=== PATIENT | female | born 1965 | race Caucasian/White ===

== ENCOUNTER → 2018-02-21 13:19 | Outpatient (POV) | payer BC, SELFPAY | DX: Z00.00 Encounter for general adult medical examination without abnormal findings (principal) ==

== ENCOUNTER → 2018-05-16 13:43 | Outpatient (POV) | payer BC, SELFPAY | PROVIDERS: PCP Nurse Practitioner Family | DX: Z00.00 Encounter for general adult medical examination without abnormal findings (principal) ==

== ENCOUNTER → 2018-05-23 13:23 | Outpatient (POV) | payer BC, SELFPAY | DX: Z00.00 Encounter for general adult medical examination without abnormal findings (principal) ==

== ENCOUNTER → 2018-06-20 13:30 | Outpatient (POV) | payer BC, SELFPAY | DX: Z00.00 Encounter for general adult medical examination without abnormal findings (principal) ==

== ENCOUNTER → 2020-04-08 14:44 | Outpatient (POV) | payer BC, SELFPAY | PROVIDERS: PCP Nurse Practitioner Family | DX: Z00.00 Encounter for general adult medical examination without abnormal findings (principal) ==

== ENCOUNTER 2020-07-26 01:57 | Inpatient (IN) | payer MEDICARE, SELFPAY ==
[2020-07-26] VITALS (29 sets, daily range): BP systolic 120–174; BP diastolic 52–78; PULSE 69–87; RESP 14–18; TEMP 36.5–36.8; O2SAT 84–100; BMI 18.6; BMI 23.6
--- NOTE | 2020-07-26 01:18 | XR_ITS ---
PROCEDURE: XR CHEST PORTABLE CLINICAL HISTORY: edema Generalized weakness COMPARISON: PA and lateral chest 11/29/2015 and 09/30/2012 FINDINGS: There is moderate generalized cardiomegaly. There are bilateral pleural effusions larger right side than left. Patchy ill-defined opacities are seen in the right perihilar region and right lower lobe and also in the left perihilar region. There are calcified right hilar nodes and subcarinal nodes. IMPRESSION: Cardiomegaly with findings most consistent with moderate chronic congestive heart failure, cannot exclude bilateral perihilar acute airspace disease such as pneumonia particularly left side Dictated by: Dr. Tc Grajeda MD 07/26/2020 07:38 Dr. Tc Grajeda MD in [place] 07/26/2020 07:38
[2020-07-26 01:21] LABS: VBG HCO3 18.7 mmol/L (23-30); VBG Oxygen Saturation 86.1 % (50-70); VBG PCO2 40.3 mmol/L (35-51); VBG PH 7.28 mmol/L (7.31-7.41); VBG PO2 48.1 mmol/L (28-40); VBG Total CO2 19.9 mmol/L (23-27)
--- NOTE | 2020-07-26 01:24 | PC.NURSE ---
calling [facility] for medical records.
[2020-07-26 01:32] LABS: Basophils % 0.4 % (0.1-2.0); Eosinophils # 0.3 K/mm3 (0.0-0.4); Eosinophils % 3.2 % (0.1-12.0); Lymphocytes # 1.3 K/mm3 (0.7-4.5); Lymphocytes % 13.7 % (10-50); Mean Corpuscular HGB Conc 28.5 g/dL (31.8-35.4); Mean Corpuscular Hemoglobin 27.7 pg (27.0-31.2); Mean Corpuscular Volume 97.4 fl (81-99); Mean Platelet Volume 8.4 fl (7.4-10.4); Monocytes # 0.7 K/mm3 (0.1-1.0); Monocytes % 6.6 % (1.7-9.3); Neutrophils # 7.4 K/mm3 (1.8-7.8); Neutrophils % 76.1 % (37.0-80.0); Red Cell Distribution Width 17.4 % (11.5-17.5); White Blood Count 9.8 K/mm3 (4.8-10.8)
--- NOTE | 2020-07-26 01:33 | PC.NURSE ---
[facility] 06/18/2020-07/08/2020
--- NOTE | 2020-07-26 01:34 | HMH.EDGENADL ---
ED Disposition Clinical Impression: Renal failure Disposition: Admitted As Inpatient Condition on Discharge: Serious - Critical Care Critical Care Time: Yes Attestation: On 07/26/20, the high probability of a clinically significant, sudden or life threatening deterioration of the following system(s) required my full and direct attention, intervention and personal management. The time I documented below is in addition to time spent performing reported procedures but includes the following listed in this critical care notation. Vital system(s) involved:: Circulatory Failure, Metabolic Failure, Renal Failure My critical care processes included: Assessment & monitoring of V/S, Initial and Re-exams, Data Review/Interpretation, Coordinating Care, Medication Orders and management, Documentation Medical Decision Making - Medical Records Medical records reviewed: Yes: I reviewed the patient's medical records. - Geraldo Inquiry Pt receiving controlled substance: No Vital Signs: 07/26/20 01:14 EST 07/26/20 01:59 EST 07/26/20 02:30 Temperature 98.0 F Temperature Source Oral Pulse Rate Pulse Rate [Right] 82 80 78 Respiratory Rate 18 16 17 Blood Pressure Blood Pressure [Right Arm] 139/62 120/56 L 129/56 L Blood Pressure Mean [Right Arm] 87 77 80 Blood Pressure Source [Right Arm] Automatic Cuff Automatic Cuff Automatic Cuff Blood Pressure Position [Right Arm] Supine Sitting Supine 02 Sat by Pulse Oximetry 84 L 97 98 Oxygen Delivery Method Room Air Room Air Nasal Cannula Oxygen Flow Rate (LPM) 3 07/26/20 02:53 07/26/20 03:00 07/26/20 03:13 Temperature 97.8 F 98.0 F Temperature Source Oral Oral Pulse Rate 76 Pulse Rate [Right] 80 75 Respiratory Rate 16 17 18 Blood Pressure 126/72 Blood Pressure [Right Arm] 141/58 H 122/56 L Blood Pressure Mean [Right Arm] 85 78 Blood Pressure Source [Right Arm] Automatic Cuff Automatic Cuff Blood Pressure Position [Right Arm] Supine Supine 02 Sat by Pulse Oximetry 95 96 Oxygen Delivery Method Nasal Cannula Nasal Cannula Nasal Cannula Oxygen Flow Rate (LPM) 3 3 2 - Lab Data Lab Results 07/26/20 01:15 EST: WBC 9.8, RBC 2.90 L, Hgb 8.0 L, Hct 28.3 L, MCV 97.4, MCH 27.7, MCHC 28.5 L, RDW 17.4, Plt Count 666 H, MPV 8.4, Neut % (Auto) 76.1, Lymph % (Auto) 13.7, [place] % (Auto) 6.6, Eos % (Auto) 3.2, Baso % (Auto) 0.4, Neut # (Auto) 7.4, Lymph # (Auto) 1.3, [place] # (Auto) 0.7, Eos # (Auto) 0.3, Baso # (Auto) 0.0 07/26/20 01:15 EST: Sodium 143, Potassium 4.5, Chloride 115 H, Carbon Dioxide 20 L, Anion Gap 12.5, BUN 66 H, Creatinine 5.00 H, Estimated Creat Clear 10, Estimated GFR 9 L*, Est GFR ( Amer) 11 L*, Glucose 109 H, Calcium 7.7 L, Phosphorus 7.6 H, Magnesium 1.6, Total Bilirubin 0.2, AST 17, ALT 9 L, Alkaline Phosphatase 130 H, Troponin I < 0.01, Total Protein 5.9 L, Albumin 2.6 L, Globulin 3.3 H, Albumin/Globulin Ratio 0.8 L 07/26/20 01:15 EST: Lactate 0.6 L 07/26/20 01:15 EST: SARS-CoV-2 IgG Ab (Rapid) Negative, SARS-CoV-2 IgM Ab (Rapid) Negative 07/26/20 01:15 EST: PT 11.9 H, INR 1.08 07/26/20 01:15 EST: NT-Pro-B Natriuret Pep 15747 H 07/26/20 01:17 EST: VBG pH 7.28 L, VBG pCO2 40.3, VBG pO2 48.1 H, VBG HCO3 18.7 L, VBG Total CO2 19.9 L, VBG O2 Saturation 86.1 H, VBG Base Excess -8.0 L 07/26/20 01:40 EST: Urine Color Yellow, Urine Appearance Cloudy, Urine pH 6.0, Ur Specific [place] 1.025, Urine Protein 2+, Urine Glucose (UA) Negative, Urine Ketones Negative, Urine Blood 1+, Urine Nitrate Negative, Urine Bilirubin Negative, Urine Urobilinogen 0.2, Ur Leukocyte Esterase 2+ A, Urine RBC 10-20, Urine WBC Tntc 07/26/20 02:05: Blood Type A Positive, Antibody Screen Negative Result diagrams: 07/26/20 01:15 EST 07/26/20 01:15 EST Orders (Tests/Meds): ED MEDICATIONS Generic Name Dose Route Start Last Admin Trade Name Freq PRN Reason Stop Dose Admin Acetaminophen 650 mg 07/26/20 02:54 Acetaminophen 325mg Tab PO 08/25/20 02:53 Q4HP PRN As Needed f
[2020-07-26 01:35] LABS: Hematocrit 28.3 % (37.0-47.0); Platelet Count 666 K/mm3 (142-424)
[2020-07-26 01:38] LABS: Alanine Aminotransferase 9 U/L (12-78); Albumin Level 2.6 g/dl (3.5-5.0); Albumin/Globulin Ratio 0.8 (1.1-1.8); Alkaline Phosphatase 130 U/L (38-126); Anion Gap 12.5 mEq/L (5-15); Aspartate Amino Transferase 17 U/L (14-36); Bilirubin,Total 0.2 mg/dl (0.2-1.3); Blood Urea Nitrogen 66 mg/dl (7-17); Calcium 7.7 mg/dl (8.4-10.2); Carbon Dioxide 20 mmol/L (22.0-30.0); Chloride 115 mmol/L (98-107); Creatinine Clearance Estimated 10 mL/min (50-200); Globulin 3.3 g/dL (1.3-3.2); Glucose 109 mg/dl (74-100); Lactic Acid 0.6 mmol/L (0.7-2.1); Magnesium 1.6 mg/dl (1.6-2.3); Phosphorous 7.6 mg/dl (2.5-4.5); Potassium 4.5 mmoL/L (3.5-5.1); Sodium 143 mmol/L (136-145); Total Protein,Serum 5.9 g/dl (6.3-8.2)
[2020-07-26 01:42] LABS: GFR (African American) 11 ML/MIN (>60)
[2020-07-26 01:43] LABS: Estimated Glomerular Filt Rate 9 ml/min (>60)
[2020-07-26 01:49] LABS: Appearance,Urine CLOUDY (Clear); Bilirubin,Urine Negative (Negative); Blood, Urine 1+ (Negative); Color,Urine YELLOW (Yellow); Glucose,Urine (UA) Negative (Negative); Ketones,Urine Negative (Negative); Leukocyte Esterase,Urine 2+ (Negative); Nitrate,Urine Negative (Negative); Protein,Urine 2+ (Negative); Specific Gravity, Urine 1.025 (1.005-1.030); Urobilinogen,Urine 0.2 EU/dl (0.2)
[2020-07-26 01:50] LABS: Troponin I < 0.01 ng/ml (0.00-0.034)
[2020-07-26 01:51] LABS: Microscopic, Urine URINE MICROSCOPIC (MICROSCOPIC); WBC,Urine TNTC #/hpf (0-3)
--- NOTE | 2020-07-26 01:56 | PC.NURSE ---
notified of critical lab results
[2020-07-26 02:13] LABS: Coronavirus 19 IgG Antibody Negative (Negative); Coronavirus 19 IgM Antibody Negative (Negative)
--- NOTE | 2020-07-26 02:37 | PC.NURSE ---
Physician speaking with Dr Renee for admission
--- NOTE | 2020-07-26 02:42 | PC.NURSE ---
Pt presented with stage 1 on coccyx.
--- NOTE | 2020-07-26 03:06 | ECG_ITS ---
APPROVED REPORT Exam: Resting ECG HR:80 bpm ECG Measurements Heart Rate 80 AXES NH 128 P 32 QRSd 70 QRS 81 QT 382 T 0 QTc 440 Conclusion Normal sinus rhythm Low voltage QRS Late r wave progression Abnormal ECG Electronically signed by : Maxwell Vargas, 07/26/2020 06:25:37
[2020-07-26 03:23] LABS: Prothrombin Time 11.9 seconds (9.4-11.8)
[2020-07-26 03:24] LABS: INR 1.08 (0.9-1.1)
--- NOTE | 2020-07-26 03:25 | PC.NURSE ---
patient up to floor via stretcher
[2020-07-26 03:58] LABS: NT Pro Brain Natriuretic Pep. 51500 pg/mL (0-125)
--- NOTE | 2020-07-26 04:12 | PC.NURSE ---
Stage 1 decubitus area 1.5cm x 0.25 cm pink with white scaly areas noted t/o
--- NOTE | 2020-07-26 04:49 | PC.NURSE ---
Pt is A&Ox4. Inspiratory and expiratory rhonchi heard scattered t/o per auscultation. Pt is tolerating 3L NC appropriately. Bowel sounds active in all 4 quads. Abdomen is soft and non-tender. Pt states I am in pain all over, but just want to sleep right now. Pt is currently resting in bed at this time with eyes closed. No other complaints or acute changes thus far this shift. Will continue to monitor.
[2020-07-26 06:47] LABS: Basophils # 0.1 K/mm3 (0-0.2); Basophils % 0.5 % (0.1-2.0); Eosinophils # 0.3 K/mm3 (0.0-0.4); Eosinophils % 2.7 % (0.1-12.0); Lymphocytes # 1.1 K/mm3 (0.7-4.5); Mean Corpuscular HGB Conc 29.7 g/dL (31.8-35.4); Mean Corpuscular Hemoglobin 28.6 pg (27.0-31.2); Mean Corpuscular Volume 96.4 fl (81-99); Mean Platelet Volume 8.4 fl (7.4-10.4); Monocytes # 0.7 K/mm3 (0.1-1.0); Monocytes % 7.4 % (1.7-9.3); Neutrophils # 7.6 K/mm3 (1.8-7.8); Neutrophils % 78.4 % (37.0-80.0); Platelet Count 592 K/mm3 (142-424); Red Blood Count 2.59 M/mm3 (4.20-5.40); Red Cell Distribution Width 17.5 % (11.5-17.5); White Blood Count 9.7 K/mm3 (4.8-10.8)
[2020-07-26 06:51] LABS: Hemoglobin 7.4 g/dL (12.2-16.2)
--- NOTE | 2020-07-26 06:54 | PC.NURSE ---
Addendum entered by Leanne Jones RN 07/26/20 07:02: Pagecandis Dukes for critical creatinine 4.8- start NS@ 50 ml/hr Original Note: Pagecandis Dukes for critical H&H Hgb-7.4 Hct 25 order type and cross match and (2) units
[2020-07-26 06:55] LABS: Anion Gap 11.5 mEq/L (5-15); Blood Urea Nitrogen 65 mg/dl (7-17); Carbon Dioxide 19 mmol/L (22.0-30.0); Chloride 117 mmol/L (98-107); Creatinine Clearance Estimated 13 mL/min (50-200); Estimated Glomerular Filt Rate 9 ml/min (>60); Potassium 4.5 mmoL/L (3.5-5.1); Sodium 143 mmol/L (136-145)
[2020-07-26 06:56] LABS: Alanine Aminotransferase 7 U/L (12-78); Albumin Level 2.3 g/dl (3.5-5.0); Albumin/Globulin Ratio 0.8 (1.1-1.8); Alkaline Phosphatase 114 U/L (38-126); Aspartate Amino Transferase 16 U/L (14-36); Bilirubin,Total 0.2 mg/dl (0.2-1.3); Calcium 7.5 mg/dl (8.4-10.2); Glucose 104 mg/dl (74-100); Phosphorous 7.6 mg/dl (2.5-4.5); Total Protein,Serum 5.3 g/dl (6.3-8.2)
[2020-07-26 06:57] LABS: GFR (African American) 11 ML/MIN (>60)
--- NOTE | 2020-07-26 07:57 | HMH.PHAVTE ---
[facility] Pharmacy VTE Monitoring - Patient Demographics Admission date: 07/26/20 Report Date: 07/26/20 Time: 07:57 Allergies/Adverse Reactions: Patient Allergies diphenhydramine [From BENADRYL] Allergy (Unknown, Verified 05/05/18 16:17) SWELLING Height: 1.65 m Weight: 64.41 kg Patient Problems: Current Active Problems Renal failure (Acute) - VTE Risk Labs: VTE Related Lab Results Hgb 7.4 g/dL (12.2-16.2) L* 07/26/20 06:10 Hct 25.0 % (37.0-47.0) L 07/26/20 06:10 Plt Count 592 K/mm3 (142-424) H 07/26/20 06:10 PT 11.9 seconds (9.4-11.8) H 07/26/20 01:15 EST INR 1.08 (0.9-1.1) 07/26/20 01:15 EST BUN 65 mg/dl (7-17) H 07/26/20 06:10 Creatinine 4.80 mg/dl (0.52-1.04) H 07/26/20 06:10 Estimated Creat Clear 13 mL/min (50-200) 07/26/20 06:10 VTE Score: 11 VTE Risk Level: Moderate Risk - Prophylaxis VTE Prophylaxis Ordered?: Yes Types of VTE Prophylaxis: TEDS Knee High Location of Applied Device: Bilateral Lower Extremeties
--- NOTE | 2020-07-26 08:09 | HMH.PHAINT ---
MEDICATION RECONCILIATION COMPLETED ON PATIENT USING EXTERNAL FILL HISTORY FROM PHARMACY. -ALLEN VILLALOBOS, BARBID
--- NOTE | 2020-07-26 12:59 | HMH.HP ---
*Admission Date: 07/26/20 *Chief complaint: Weakness *History of present illness: Patient is a 55-year-old white female, primary physician is nonstaff. We admitted her through the emergency room last night with complaints of generalized weakness which has been escalating. She had previously been to [facility], very similar complaints, left there AMA. She appears to be chronically ill and did not have a great very great summer. Patient was diagnosed with Covid in April. Long-term smoker. She is hypoxic, getting O2 per nasal cannula at 3 L. She was dependent on home oxygen, carries a diagnosis of COPD. She has a history of pneumonia. Patient is status post a transmetatarsal amputation of the right foot, a below the knee amputation on the left fairly recently. The BKA wound looks good, she still has some nylon sutures in place. These were being taken out in a stepwise fashion. She is bedbound for most of the day. Patient has a history of chronic renal failure. Her intake creatinine was 5.0. She is a very poor historian, but by her account has not seen a architecture drafter. Plans for hemodialysis transplant etc. have not been discussed with her. Etiology of her renal failure is not immediately clear. She denies a history of kidney stones. Patient has a very flat affect. Patient was found to have a UTI on admission, she is started on IV Rocephin. Blood culture and urine culture are pending. Previous echoes have suggested a diminished ejection fraction presence of curly B lines. Hemoglobin this morning is 7.4, she is in the process of receiving the first of 2 units PRBCs. Is that she has been transfused in the past. Patient has a very flat affect and is a very poor historian. [facility] History Medical History: Reports:: Diabetes Mellitus Type 1, Diabetes Mellitus Type 2, Hyperlipidemia, Hypertension, MRSA Denies:: Cancer *Have you ever received a pneumonia vaccine?: Yes *Have you received a flu vaccine this season?: No Other Medical History: Reports: Anemia, Blood Transfusion Reaction, Cataracts Other Surgeries: Yes: Angioplasty, Hysterectomy-Partial Amputation: Yes - *Social History Last grade of school completed: Some college Smoking Status: Current every day smoker Tobacco Type: cigarettes # Packs/Day (cigarettes): 1 Alcohol Intake: never *Occupational Status:: retired Housing: other *Travel in the last 8 weeks: None Family Hx:: Anemia, Cancer, Coronary Artery Disease, Diabetes, Heart Attack, Hyperlipidemia, Hypertension, Kidney Disease, Stroke, Alcoholism Review of Systems - Constitutional Reports anorexia, Reports lack of energy, Reports malaise - Eyes Denies change in vision, Denies discharge, Denies sensitivity to light - ENT Denies abnormal hearing, Denies ear pain - *Cardiovascular Reports shortness of breath with activity, Reports generalized swelling, Denies chest pain, Denies chest pain at rest, Denies irregular heart rhythm - *Respiratory Reports chest congestion, Reports wheezing, Denies change in phlegm color, Denies coughing up blood - *Gastrointestinal Denies abdominal pain, Denies loose stools, Denies difficulty swallowing, Denies vomiting blood, Denies black, tarry stools, Denies pain with swallowing - *Genitourinary Denies difficulty urinating, Denies blood in urine, Denies frequent nighttime urination - *Musculoskeletal Reports abnormal walking, Reports decreased muscle mass, Reports muscle weakness - Integumentary/Breasts Denies change in skin color, Denies new lesions - *Neurologic Reports abnormal walking, Denies confusion, Denies loss of vision, Denies memory loss, Denies seizure-like activity, Denies tremor(s) - Psychiatric Reports lack of enjoyment, Reports hopelessness - Endocrine Denies cold intolerance - Hematologic/Lymphatic Denies easy bleeding - Allergic/Immunologic Reports wheezing Meds Home Medications Medication Instructions Recorded Confirmed Type as
--- NOTE | 2020-07-26 16:47 | PC.NURSE ---
Pt has been pleasant and cooperative this shift. A&O X4. No complaints of pain or SOA. Pt has slept the majority of the shift and reports being exhausted . Pt received 2 units of PRBC's this shift. Lungs CTA. 2+ pitting edema noted to BLE. LT BKA covered with an ABD pad, Kerlix, and an ZENAIDA wrap. RT foot currently floating on a pillow due to a softened/reddened area on the heel. Toe amputation X 5 on the RT foot. Stage 1 decubitus ulcer noted to coccyx and covered with an Allevyn dressing. Pt requires assistance X1 with repositioning and has been encouraged to turn/reposition a minimum of Q2H this shift. F/C is patent and draining clear, yellow urine at bedside to gravity. No BM this shift. 20 G peripheral IV in the LT AC is patent and infusing NS @ 50 ML/HR. Pt is receiving O2 @ 3 LPM via NC with sats. >95%. VSS. Call light within reach. Will continue to monitor.
[2020-07-27 04:00] VITALS: BP 134/68; PULSE 87; RESP 18; TEMP 37.1; O2SAT 98
[2020-07-27 05:08] VITALS: BMI 24.1
--- NOTE | 2020-07-27 05:12 | PC.NURSE ---
Pt is A&Ox4. Pt has rested majority of this shift and has been very lethargic while awake and communicating with this nurse. Rt heel remains floated on pillow. Dressing on LLE BKA remains CDI. Lung sounds are clear t/o. Active bowel sounds in all 4 quads. [place] remains patent and is draining cloudy, dark yellow urine per gravity. No other complaints or acute changes at this time. Will continue to monitor.
[2020-07-27 05:56] LABS: POC Glucose,Bedside 114 (70-110)
[2020-07-27 06:39] LABS: MANUAL DIFFERENTIAL MANUAL DIFFERENTIAL (MANUAL DIFF)
[2020-07-27 06:41] LABS: Basophils # 0.1 K/mm3 (0-0.2); Basophils % 0.7 % (0.1-2.0); Eosinophils # 0.3 K/mm3 (0.0-0.4); Eosinophils % 3.6 % (0.1-12.0); Hematocrit 31.8 % (37.0-47.0); Hemoglobin 9.3 g/dL (12.2-16.2); Lymphocytes # 1.1 K/mm3 (0.7-4.5); Lymphocytes % 15.3 % (10-50); Mean Corpuscular HGB Conc 29.3 g/dL (31.8-35.4); Mean Corpuscular Hemoglobin 27.5 pg (27.0-31.2); Mean Platelet Volume 8.4 fl (7.4-10.4); Monocytes # 0.6 K/mm3 (0.1-1.0); Monocytes % 8.6 % (1.7-9.3); Neutrophils # 5.2 K/mm3 (1.8-7.8); Neutrophils % 71.9 % (37.0-80.0); Platelet Count 510 K/mm3 (142-424); Red Blood Count 3.38 M/mm3 (4.20-5.40); Red Cell Distribution Width 17.9 % (11.5-17.5); White Blood Count 7.2 K/mm3 (4.8-10.8)
[2020-07-27 07:00] LABS: Chloride 117 mmol/L (98-107); Potassium 4.5 mmoL/L (3.5-5.1); Sodium 144 mmol/L (136-145)
[2020-07-27 07:02] LABS: Alanine Aminotransferase 6 U/L (12-78); Aspartate Amino Transferase 16 U/L (14-36); Blood Urea Nitrogen 64 mg/dl (7-17); Creatinine Clearance Estimated 15 mL/min (50-200); Estimated Glomerular Filt Rate 10 ml/min (>60); GFR (African American) 13 ML/MIN (>60)
[2020-07-27 07:03] LABS: Albumin Level 2.2 g/dl (3.5-5.0); Albumin/Globulin Ratio 0.7 (1.1-1.8); Alkaline Phosphatase 89 U/L (38-126); Anion Gap 11.5 mEq/L (5-15); Bilirubin,Total 0.2 mg/dl (0.2-1.3); Calcium 7.4 mg/dl (8.4-10.2); Carbon Dioxide 20 mmol/L (22.0-30.0); Globulin 3.1 g/dL (1.3-3.2); Glucose 102 mg/dl (74-100); Total Protein,Serum 5.3 g/dl (6.3-8.2)
[2020-07-27 07:40] VITALS: BP 166/77; PULSE 94; RESP 20; TEMP 36.8; O2SAT 98
[2020-07-27 09:02] LABS: Anisocytosis 1+; Lymphocytes % 12 % (10-50); Monocytes % 2 % (2-9); Neutrophils % 86 % (42-76); Platelet Estimate Marked Increase; Total Cells Counted 100
[2020-07-27 09:03] LABS: Hypochromasia 1+
--- NOTE | 2020-07-27 09:36 | PC.NURSE ---
Did make Dr. Dukes and Meche in care management aware of notification of creatinine of 4.4 - which is lower than prior level this am.
[2020-07-27 11:27] LABS: POC Glucose,Bedside 226 (70-110)
--- NOTE | 2020-07-27 12:45 | HMH.ACPN2 ---
Internal Medicine - PN: Subj *Date: 07/27/20 *Time: 19:21 Interval history: uneventful night transfused denies chest pain/dyspnea Exam Vital signs and Labs for Last 24 Hours: Temp Pulse Resp BP Pulse Ox 98.2 F 94 H 20 166/77 H 98 07/27/20 07:40 07/27/20 07:40 07/27/20 07:40 07/27/20 07:40 07/27/20 07:40 Laboratory Results - last 24 hr 07/26/20 02:05: Crossmatch (AHG) See Detail 07/26/20 15:00: Hgb 10.0 L D, Hct 33.0 L 07/27/20 05:47: POC Glucose 114 H 07/27/20 06:28: WBC 7.2 D, RBC 3.38 L D, Hgb 9.3 L, Hct 31.8 L, MCV 94.0, MCH 27.5, MCHC 29.3 L, RDW 17.9 H, Plt Count 510 H, MPV 8.4, Neut % (Auto) 71.9, Lymph % (Auto) 15.3, [place] % (Auto) 8.6, Eos % (Auto) 3.6, Baso % (Auto) 0.7, Neut # (Auto) 5.2, Lymph # (Auto) 1.1, [place] # (Auto) 0.6, Eos # (Auto) 0.3, Baso # (Auto) 0.1, Total Counted 100, Neutrophils % (Manual) 86 H, Lymphocytes % (Manual) 12, Monocytes % (Manual) 2, Platelet Estimate Marked increase, Hypochromasia 1+, Anisocytosis 1+ 07/27/20 06:28: Sodium 144, Potassium 4.5, Chloride 117 H, Carbon Dioxide 20 L, Anion Gap 11.5, BUN 64 H, Creatinine 4.40 H, Estimated Creat Clear 15, Estimated GFR 10 L*, Est GFR ( Amer) 13 L*, Glucose 102 H, Calcium 7.4 L, Total Bilirubin 0.2, AST 16, ALT 6 L, Alkaline Phosphatase 89, Total Protein 5.3 L, Albumin 2.2 L, Globulin 3.1, Albumin/Globulin Ratio 0.7 L 07/27/20 11:16: POC Glucose 226 H I & O for Last 24 hours: Intake & Output 07/25/20 07/26/20 07/26/20 07/27/20 00:59 00:59 23:59 23:59 Intake Total 980 / 980 Output Total 200 / 200 Balance 780 / 780 Weight 145 lb Microbiology Reports for the Last 24 Hours: Microbiology 07/26/20 01:40 EST Urine,Catheterized Urine Culture - Preliminary - Constitutional chronically ill appearing, disheveled - *Routine HEENT Exam Head: Present: normocephalic. Absent: facial swelling Eye: Absent: conjunctival icterus ENT: Present: mucous membranes moist - *Routine Neck Exam Present: supple. Absent: JVD - *Routine Respiratory Exam Present: CTA bilaterally - *Routine Cardiovascular Exam Present: RRR - *Routine Abdominal Exam Present: soft, normoactive bowel sounds. Absent: tenderness - *Routine Extremities Exam Present: amputation. Absent: cyanosis, calf tenderness - *Routine Skin Exam Present: warm. Absent: rash - *Routine Neurological Exam Present: alert, oriented X3, vision grossly intact, hearing grossly intact - Routine Psychiatric Exam Present: depressed Assessment and Plan (1) Diabetes Status: Acute Category: Medical Code(s): E11.9 - Type 2 diabetes mellitus without complications (2) Coronary artery disease Status: Acute Category: Medical Code(s): I25.10 - Atherosclerotic heart disease of [place] coronary artery without angina pectoris (3) Chronic renal failure Status: Acute Category: Medical Code(s): N18.9 - Chronic kidney disease, unspecified (4) Anemia Status: Acute Category: Medical Code(s): D64.9 - Anemia, unspecified (5) Status post below-knee amputation of left lower extremity Status: Acute Category: Surgical Code(s): Z89.512 - Acquired absence of left leg below knee (6) History of transmetatarsal amputation of right foot Status: Acute Category: Surgical Code(s): Z89.431 - Acquired absence of right foot (7) COPD (chronic obstructive pulmonary disease) Status: Acute Category: Medical Code(s): J44.9 - Chronic obstructive pulmonary disease, unspecified (8) Hypoxia Status: Acute Category: Medical Code(s): R09.02 - Hypoxemia (9) Chronic respiratory failure with hypoxia, on home O2 therapy Status: Acute Category: Medical Code(s): J96.11 - Chronic respiratory failure with hypoxia; Z99.81 - Dependence on supplemental oxygen (10) History of pneumonia Status: Acute Category: Medical Code(s): Z87.01 - Personal history of pneumonia (recurrent) (11) History of 2019 novel coronavirus
[2020-07-27 13:32] VITALS: BMI 24.1
--- NOTE | 2020-07-27 13:35 | US_ITS ---
PROCEDURE: US KIDNEY CLINICAL INDICATION: crf Chronic renal failure COMPARISON: No exams were available for comparison FINDINGS: The right kidney is [id number]. No hydronephrosis, cortical thinning, or renal mass or perinephric fluid collection is evident. The left kidney is [id number]. No hydronephrosis, cortical thinning, or renal mass or perinephric fluid collection is evident. There are bilateral pleural effusions. There is a minimal amount of [place] renal fluid on the right. IMPRESSION: Unremarkable bilateral renal ultrasound. Bilateral pleural effusions with a small amount of fluid in the right perirenal space Dictated by: Rafy Garcia MD 07/27/2020 10:53 Rafy Garcia MD in [place] 07/27/2020 10:53
--- NOTE | 2020-07-27 13:35 | CA_ITS ---
APPROVED REPORT EXAM: Comprehensive 2D, Doppler, and color-flow Echocardiogram Recovery Assistant: Sugar Subramanian CRT Ht: 5 ft 4 in Wt: 142lbs BSA: 1.69 BP: 161/69 mmHg Indications: SOA,COPD,HTN,DM,CAD 2D Dimensions LVOT 1.59 cm (M/F) 1.5-2.5 M-Mode Dimensions RVDd 2.15 cm (0.9-2.6) LA Diam 3.50 cm (1.9-4.0) LVDd 5.62 cm (3.5-5.7) Ao Diam 3.16 cm (2.0-3.7) LVDs 4.14 cm (3.5-5.7) IVSd 1.14 cm (0.6-1.1) PWd 1.28 cm (0.6-1.1) EF (Teich) 51.00% FS 26.30% EDV (Teich) 154.90 mL ESV (Teich) 75.90 mL LV Diastology E Decel Time 90.00 (160-240 msec) E/A Ratio 0.7 MED E' 5.40 (< 7 cm/sec) E'/MED E' Ratio 11.50 (>14) LAT E' 7.30 (<10 cm/sec) E/LAT E' Ratio 8.51 (>14) Mitral Valve MV E Max Manjit. 62.00 (40-130 cm/s) MV A Velocity 83.00 (40-130 cm/s) E/A Ratio 0.75 MV Decel. Time 90.00 (160-240 ms) MV PHT 26.00 ms Left Ventricle Left atrium is mildly enlarged, left ventricle is normal size, mild concentric left ventricular hypertrophy, visually estimated ejection fraction 50%, there appears to be mild hypokinesis involving the inferior basal wall. Grade 1 diastolic dysfunction seen without tissue Doppler evidence of raise left atrial pressure. Right Ventricle Right atrium and right ventricular normal size and contractility. Aortic Valve Aortic valve is thickened and calcified leaflet chordae display good mobility, there is no aortic stenosis or aortic insufficiency. Mitral Valve Mitral valve is grossly normal, there is mild mitral regurgitation. Tricuspid Valve Tricuspid valve is grossly normal, there is mild tricuspid regurgitation, tricuspid regurgitation jet velocity is inadequate for calculation of the right ventricular systolic pressure. Pulmonic Valve Pulmonic valve is poorly visualized. Great Vessels Aortic root is normal size. Pericardium There is moderate-sized circumferential pericardial effusion noted without Doppler evidence of raised intrapericardial pressure. There is left-sided pleural effusion noted, there is organized echodense mass seen in the pleural effusion. Conclusion 1. Mildly enlarged left atrium, normal left ventricular size, mild concentric left ventricular hypertrophy, visually estimated ejection fraction of 50% with segmental wall motion abnormality described above, grade 1 diastolic dysfunction seen without tissue Doppler evidence of raise left atrial pressure. 2. Thickened and calcified aortic valve without Doppler evidence of aortic stenosis or aortic insufficiency. 3. Mild mitral and tricuspid regurgitation. 4. Moderate-sized circumferential pericardial effusion and left-sided pleural effusion seen as described above. 5. There is no Doppler evidence of raised intrapericardial pressure or tamponade physiology. Electronically signed by : Vinicio Moctezuma, 07/28/2020 04:55:51
[2020-07-27 15:22] VITALS: O2SAT 91; O2SAT 94
--- NOTE | 2020-07-27 15:42 | HMH.CNCARD ---
History of Present Illness Consult date: 07/27/20 Requesting physician: Joshua Dukes Consult reason: congestive heart failure Chief complaint: weakness Additional Medical History:: 1. History of congestive heart failure A. Echocardiogram 06/2020, ejection fraction 35% with evidence of concentric LVH, mild to moderate MR, trace AR B. Echocardiogram, 07/27/2020, preliminary shows improved ejection fraction of greater than 50% with mild MR and TR with moderate pericardial effusion. 2. Diabetes mellitus, treated for many years 3. Peripheral vascular disease A. Partial right foot amputation, 2018 B. Below the knee amputation, left leg, 06/2020 4. Acute on chronic kidney disease A. Creatinine 1.4 with GFR of 39 on 06/19/2020 B. Creatinine 5.0 with GFR of 9 on 07/26/2020 C. Hypoalbuminemia/hypo proteinemia 5. Chronic anemia A. Transfusion of 2 units PRBCs, 07/2020 6. History of COVID-19 infection 7. Chronic hypoxic respiratory failure with home O2 A. Tobacco use 8. Thrombocytosis with platelet count greater than 600,000, 07/2020 History of present illness: Patient is a 55-year-old white female, primary physician is nonstaff. We admitted her through the emergency room last night with complaints of generalized weakness which has been escalating. She had previously been to [facility], very similar complaints, left there AMA. She appears to be chronically ill and did not have a great very great summer. Patient was diagnosed with Covid in April. Long-term smoker. She is hypoxic, getting O2 per nasal cannula at 3 L. She was dependent on home oxygen, carries a diagnosis of COPD. She has a history of pneumonia. Patient is status post a transmetatarsal amputation of the right foot, a below the knee amputation on the left fairly recently. The BKA wound looks good, she still has some nylon sutures in place. These were being taken out in a stepwise fashion. She is bedbound for most of the day. Patient has a history of chronic renal failure. Her intake creatinine was 5.0. She is a very poor historian, but by her account has not seen a commercial maintenance technician. Plans for hemodialysis transplant etc. have not been discussed with her. Etiology of her renal failure is not immediately clear. She denies a history of kidney stones. Patient has a very flat affect. Patient was found to have a UTI on admission, she is started on IV Rocephin. Blood culture and urine culture are pending. Previous echoes have suggested a diminished ejection fraction presence of curly B lines. Hemoglobin this morning is 7.4, she is in the process of receiving the first of 2 units PRBCs. Is that she has been transfused in the past. Patient has a very flat affect and is a very poor historian. The above per Dr. Weinberg on admission. Patient relates prolonged stay at [facility] in May of this year with cellulitis/gangrene resulting in left below the knee amputation. After that hospitalization patient did have a short stay at [facility] but left AMA. She is not a great historian and does not remember parts of the stays to be the hospital. Per records she did have hemodialysis catheter placed at 1 point but removed it herself prior to leaving the hospital in [place]. She came to [facility] for admission due to weakness and confusion. She denies any chest pain, pressure or tightness at this time. [facility] History Medical History: Reports:: Diabetes Mellitus Type 1, Diabetes Mellitus Type 2, Hyperlipidemia, Hypertension, MRSA Denies:: Cancer *Have you ever received a pneumonia vaccine?: Yes *Have you received a flu vaccine this season?: No Other Medical History: Reports: Anemia, Blood Transfusion Reaction, Cataracts Other Surgeries: Yes: Angioplasty, Hysterectomy-Partial Amputation: Yes - *Social History Last grade of school completed: Some college Smoking Status: Current every day smoker Tobacco Type: cigarettes # Pac
[2020-07-27 16:00] VITALS: BP 155/72; PULSE 89; RESP 16; TEMP 36.7; O2SAT 90
[2020-07-27 16:30] LABS: POC Glucose,Bedside 214 (70-110)
--- NOTE | 2020-07-27 16:55 | PC.NURSE ---
This nurse did call at 1443 to request ssi regimen for pt. LM. Pts blood sugars have been 221 and 214 this shift. Pt has been asymptomatic. Awaiting ans at this time.
--- NOTE | 2020-07-27 18:23 | PC.NURSE ---
Pt alert and oriented x4 and able to make needs known. RR even and unlabored. Remains on 3 L NC. CB in reach. VSS. Have given meds per mar. Audible wheezes noted. S1,S2. No complaints this shift. Indwelling cath remains in place. BS x 4. Remains safe. Mx continues.
--- NOTE | 2020-07-27 19:21 | PC.NURSE ---
report given to clyde
[2020-07-27 20:00] VITALS: BP 151/74; PULSE 102; RESP 16; TEMP 36.8; O2SAT 91
[2020-07-27 22:01] LABS: POC Glucose,Bedside 165 (70-110)
--- NOTE | 2020-07-28 03:04 | PC.NURSE ---
Pt is alert and oriented x4. Pt noted restless majority of the shift thus far. No acute changes noted from previous shift. Pt c/o generalized pain. Administered Tylenol and Ambia x1 per NOV. Pt states adequate pain relief upon reassessment. PERRLA. Bilateral hand crime lab analyst noted equal and strong. Cap refill < 3 seconds. Right lobe noted with wheezing t/o upon auscultation. Left lobe noted with clear breath sounds. RR noted even and unlabored. Tolerated 3 lnc well. Pt will take o2 off at times, but states she does this at home and knows when to put the NC back on before becoming SOA. Pt denies SOA with RA. Abdomen noted soft and non-tender upon palpation. Denies N/V/D. +2 pitting edema noted to left stump. +3 pitting edema noted to right leg and foot. Pt refused to elevate BLE on pillows while lying in bed for this RN when offered. Refused TEDS. Dsg changed to buttocks region this shift. VSS. Remains safe. Call light within reach. Will continue to monitor.
[2020-07-28 04:00] VITALS: BP 163/74; PULSE 88; RESP 16; TEMP 36.6; O2SAT 95
[2020-07-28 05:25] LABS: POC Glucose,Bedside 119 (70-110)
[2020-07-28 05:33] VITALS: BMI 24.3
[2020-07-28 05:53] VITALS: O2SAT 95
[2020-07-28 07:05] LABS: Basophils # 0.1 K/mm3 (0-0.2); Basophils % 0.6 % (0.1-2.0); Eosinophils # 0.4 K/mm3 (0.0-0.4); Eosinophils % 4.5 % (0.1-12.0); Hematocrit 33.4 % (37.0-47.0); Lymphocytes # 1.3 K/mm3 (0.7-4.5); Lymphocytes % 14.9 % (10-50); Mean Corpuscular HGB Conc 29.8 g/dL (31.8-35.4); Mean Corpuscular Hemoglobin 27.9 pg (27.0-31.2); Mean Corpuscular Volume 93.5 fl (81-99); Mean Platelet Volume 7.7 fl (7.4-10.4); Monocytes # 0.6 K/mm3 (0.1-1.0); Monocytes % 7.2 % (1.7-9.3); Neutrophils # 6.3 K/mm3 (1.8-7.8); Neutrophils % 72.8 % (37.0-80.0); Platelet Count 476 K/mm3 (142-424); Red Blood Count 3.58 M/mm3 (4.20-5.40); Red Cell Distribution Width 17.7 % (11.5-17.5); White Blood Count 8.6 K/mm3 (4.8-10.8)
[2020-07-28 07:09] LABS: Chloride 114 mmol/L (98-107); Potassium 4.4 mmoL/L (3.5-5.1); Sodium 143 mmol/L (136-145)
[2020-07-28 07:11] LABS: Blood Urea Nitrogen 60 mg/dl (7-17); Creatinine Clearance Estimated 15 mL/min (50-200); Estimated Glomerular Filt Rate 10 ml/min (>60); GFR (African American) 12 ML/MIN (>60)
[2020-07-28 07:12] LABS: Alanine Aminotransferase 7 U/L (12-78); Albumin Level 2.3 g/dl (3.5-5.0); Albumin/Globulin Ratio 0.7 (1.1-1.8); Alkaline Phosphatase 90 U/L (38-126); Anion Gap 13.4 mEq/L (5-15); Aspartate Amino Transferase 17 U/L (14-36); Bilirubin,Total 0.3 mg/dl (0.2-1.3); Calcium 7.5 mg/dl (8.4-10.2); Carbon Dioxide 20 mmol/L (22.0-30.0); Globulin 3.2 g/dL (1.3-3.2); Glucose 107 mg/dl (74-100); Total Protein,Serum 5.5 g/dl (6.3-8.2)
[2020-07-28 07:46] VITALS: BP 164/78; PULSE 88; RESP 22; TEMP 36.4; O2SAT 96
--- NOTE | 2020-07-28 08:00 | PC.NURSE ---
notified Skye Alarcon APRN of notification lab. creat 4.5. no new order.
--- NOTE | 2020-07-28 08:20 | HMH.PNCARD ---
Subjective Date: 07/28/20 Time: 08:20 Principal diagnosis: CHF, ARF Interval history: 55-year-old white female in bed in no acute distress. States her pain is improved after being given pain medication last evening. Patient's urine output did improve last evening after diuretic therapy but still patient has not achieved a negative fluid balance at this time. Exam Vital signs and Labs for Last 24 Hours: Temp Pulse Resp BP Pulse Ox 97.6 F 88 22 164/78 H 96 07/28/20 07:46 07/28/20 07:46 07/28/20 07:46 07/28/20 07:46 07/28/20 07:46 Laboratory Results - last 24 hr 07/27/20 06:28: Total Counted 100, Neutrophils % (Manual) 86 H, Lymphocytes % (Manual) 12, Monocytes % (Manual) 2, Platelet Estimate Marked increase, Hypochromasia 1+, Anisocytosis 1+ 07/27/20 11:16: POC Glucose 226 H 07/27/20 16:22: POC Glucose 214 H 07/27/20 21:52: POC Glucose 165 H 07/28/20 05:17: POC Glucose 119 H 07/28/20 06:35: WBC 8.6, RBC 3.58 L, Hgb 10.0 L, Hct 33.4 L, MCV 93.5, MCH 27.9, MCHC 29.8 L, RDW 17.7 H, Plt Count 476 H, MPV 7.7, Neut % (Auto) 72.8, Lymph % (Auto) 14.9, [place] % (Auto) 7.2, Eos % (Auto) 4.5, Baso % (Auto) 0.6, Neut # (Auto) 6.3, Lymph # (Auto) 1.3, [place] # (Auto) 0.6, Eos # (Auto) 0.4, Baso # (Auto) 0.1 07/28/20 06:35: Sodium 143, Potassium 4.4, Chloride 114 H, Carbon Dioxide 20 L, Anion Gap 13.4, BUN 60 H, Creatinine 4.50 H, Estimated Creat Clear 15, Estimated GFR 10 L*, Est GFR ( Amer) 12 L*, Glucose 107 H, Calcium 7.5 L, Total Bilirubin 0.3, AST 17, ALT 7 L, Alkaline Phosphatase 90, Total Protein 5.5 L, Albumin 2.3 L, Globulin 3.2, Albumin/Globulin Ratio 0.7 L I & O for Last 24 hours: Intake & Output 07/25/20 07/26/20 07/27/20 07/28/20 12:59 11:59 11:59 11:59 Intake Total 1455 / 1455 1670 / 1670 Output Total 200 / 200 1150 / 1150 Balance 1255 / 1255 520 / 520 Weight 145 lb 146 lb 6 oz Microbiology Reports for the Last 24 Hours: Microbiology 07/26/20 01:15 EST Blood Blood Culture - Preliminary NO GROWTH AFTER 48 HOURS 07/26/20 01:15 EST Blood Blood Culture - Preliminary NO GROWTH AFTER 48 HOURS 07/26/20 01:40 EST Urine,Catheterized Urine Culture - Preliminary - *Routine Respiratory Exam Present: decreased breath sounds - *Routine Cardiovascular Exam Present: RRR - *Routine Extremities Exam Present: edema. Absent: cyanosis, clubbing - *Routine Neurological Exam Present: alert, oriented X3 Progress Note: A&P (1) Diabetes Status: Acute (2) Coronary artery disease Status: Acute (3) Chronic renal failure Status: Acute (4) Anemia Status: Acute (5) Status post below-knee amputation of left lower extremity Status: Acute (6) History of transmetatarsal amputation of right foot Status: Acute (7) COPD (chronic obstructive pulmonary disease) Status: Acute (8) Hypoxia Status: Acute (9) Chronic respiratory failure with hypoxia, on home O2 therapy Status: Acute (10) History of pneumonia Status: Acute (11) History of 2019 novel coronavirus disease (COVID-19) Status: Acute (12) Cardiomegaly Status: Acute (13) Heart failure with reduced ejection fraction Status: Acute (14) Reduced ejection fraction concurrent with and due to chronic heart failure Status: Acute (15) Hypertension Status: Acute (16) Protein-calorie malnutrition, severe Status: Chronic (17) Urinary tract infection Status: Acute Assessment and Plan for All Diagnoses:: 1. Congestive heart failure with increase in urine output after IV chlorothiazide and high-dose Bumex. Complicated by acute on chronic renal failure. 2. Acute on chronic renal failure, stable with creatinine 4.5 this a.m. Discussed option of transferring for dialysis and patient is amenable to this plan. 3. History of cardiomyopathy, improved, echocardiogram yesterday showing ejection fraction of
--- NOTE | 2020-07-28 10:43 | SW/DCPLANNER ---
I have spoke with this patient regarding discharge plans. Patient stated that she resides at home with her daughter and has no needs at this time. I spoke with patient regarding home health services at time of discharge and patient has refused all resources at this time. Patient has stated that she may transfer to [facility] or discharge home later today.
[2020-07-28 11:41] LABS: POC Glucose,Bedside 133 (70-110)
--- NOTE | 2020-07-28 12:18 | HMH.DCSUM ---
General - General Admission date:: 07/26/20 Discharge date: 07/28/20 HPI HPI: Patient is a 55-year-old white female, primary physician is nonstaff. We admitted her through the emergency room last night with complaints of generalized weakness which has been escalating. She had previously been to [facility], very similar complaints, left there AMA. She appears to be chronically ill and did not have a great very great summer. Patient was diagnosed with Covid in April. Long-term smoker. She is hypoxic, getting O2 per nasal cannula at 3 L. She was dependent on home oxygen, carries a diagnosis of COPD. She has a history of pneumonia. Patient is status post a transmetatarsal amputation of the right foot, a below the knee amputation on the left fairly recently. The BKA wound looks good, she still has some nylon sutures in place. These were being taken out in a stepwise fashion. She is bedbound for most of the day. Patient has a history of chronic renal failure. Her intake creatinine was 5.0. She is a very poor historian, but by her account has not seen a wheat grower. Plans for hemodialysis transplant etc. have not been discussed with her. Etiology of her renal failure is not immediately clear. She denies a history of kidney stones. Patient has a very flat affect. Patient was found to have a UTI on admission, she is started on IV Rocephin. Blood culture and urine culture are pending. Previous echoes have suggested a diminished ejection fraction presence of curly B lines. Hemoglobin this morning is 7.4, she is in the process of receiving the first of 2 units PRBCs. Is that she has been transfused in the past. Patient has a very flat affect and is a very poor historian. Hospital Course Hospital Course: Patient is a 55-year-old white female, primary physician is nonstaff. We admitted her through the emergency room last night with complaints of generalized weakness which has been escalating. She had previously been to [facility], very similar complaints, left there AMA. She appears to be chronically ill and did not have a great very great summer. Patient was diagnosed with Covid in April. Long-term smoker. She is hypoxic, getting O2 per nasal cannula at 3 L. She was dependent on home oxygen, carries a diagnosis of COPD. She has a history of pneumonia. Patient is status post a transmetatarsal amputation of the right foot, a below the knee amputation on the left fairly recently. The BKA wound looks good, she still has some nylon sutures in place. These were being taken out in a stepwise fashion. She is bedbound for most of the day. Patient has a history of chronic renal failure. Her intake creatinine was 5.0. She is a very poor historian, but by her account has not seen a wheat grower. Plans for hemodialysis transplant etc. have not been discussed with her. Etiology of her renal failure is not immediately clear. She denies a history of kidney stones. Patient has a very flat affect. Patient was found to have a UTI on admission, she is started on IV Rocephin. Blood culture and urine culture are pending. Previous echoes have suggested a diminished ejection fraction presence of curly B lines. Hemoglobin this morning is 7.4, she is in the process of receiving the first of 2 units PRBCs. Is that she has been transfused in the past. Patient has a very flat affect and is a very poor historian. 07/27/20 ECHO: Conclusion 1. Mildly enlarged left atrium, normal left ventricular size, mild concentric left ventricular hypertrophy, visually estimated ejection fraction of 50% with segmental wall motion abnormality described above, grade 1 diastolic dysfunction seen without tissue Doppler evidence of raise left atrial pressure. 2. Thickened and calcified aortic valve without Doppler evidence of aortic stenosis or aortic insufficiency. 3. Mild mitral and tricuspid regurgitation. 4. Moderate-siz
[2020-07-28 15:29] VITALS: BP 125/54; PULSE 86; RESP 20; TEMP 36.8; O2SAT 96
== END 2020-07-28 16:47 | disposition home or self-care (01) | DRG 291 ==
LOC: 2ND 02:55
PROVIDERS: Admitting Provider Family Medicine; Emergency Provider Emergency Medicine; PCP Nurse Practitioner Family; Visit Provider Family Medicine
DX: I50.23 Acute on chronic systolic (congestive) heart failure (principal); E43 Unspecified severe protein-calorie malnutrition; I13.2 Hypertensive heart and chronic kidney disease with heart failure and with stage 5 chronic kidney disease, or end stage renal disease; N39.0 Urinary tract infection, site not specified; N17.9 Acute kidney failure, unspecified; N18.5 Chronic kidney disease, stage 5; J96.11 Chronic respiratory failure with hypoxia; Z86.19 Personal history of other infectious and parasitic diseases; E11.22 Type 2 diabetes mellitus with diabetic chronic kidney disease; Z79.02 Long term (current) use of antithrombotics/antiplatelets; Z79.4 Long term (current) use of insulin; J44.9 Chronic obstructive pulmonary disease, unspecified; Z99.81 Dependence on supplemental oxygen; Z68.24 Body mass index [BMI] 24.0-24.9, adult; Z72.0 Tobacco use; Z89.431 Acquired absence of right foot; Z89.512 Acquired absence of left leg below knee; Z79.82 Long term (current) use of aspirin; Z79.51 Long term (current) use of inhaled steroids
CPT/HCPCS: 36415; 71045; 76770; 80053; 81001; 82803; 82962; 83605; 83735; 83880; 84100; 84484; 85007; 85014; 85018; 85025; 85048; 85049; 85610; 86328; 86850; 87040; 87086; 87088; 87186; 90686; 93005; 93306; 96365; 96367; 99284; J1205; P9016